=== PATIENT | male | born 1960 | race African-American/Black ===

== ENCOUNTER 2019-01-07 09:58 | Emergency (ER) | payer MEDICAID ==
[~2019-01-07] VITALS: Ht 177.8 cm; Wt 87.0 kg
[2019-01-07 11:36] VITALS: BP 143/77
== END 2019-01-07 14:03 | disposition left against medical advice (07) ==
LOC: ER 09:58
DX: Z53.21 Procedure and treatment not carried out due to patient leaving prior to being seen by health care provider (principal)